=== PATIENT | female | born 1975 | race Hispanic/Latino ===

== ENCOUNTER 2022-04-08 16:09 | Emergency (ER) | payer SELFPAY ==
[2022-04-08] MEDS ORDERED: NALOXONE 2 MG/2 ML INJ ONE (16:31)
[2022-04-08] MEDS ORDERED: NALOXONE 2 MG/2 ML INJ IV ONE (16:45)
[2022-04-08] MEDS ORDERED: SODIUM CHLORIDE 0.9% 1000 ML 1,000 ML IV ONE (16:48)
[2022-04-08 17:48] LABS: Alanine Aminotransferase 22 units/L (7-56); Albumin 3.9 g/dL (3.9-5); Blood Urea Nitrogen 15 mg/dL (7-17); Calcium 8.4 mg/dL (8.4-10.2); Hemolysis Index 6
[2022-04-08 17:55] LABS: Benzodiazepines Screen,Urine Negative; Cannabinoid Screen,Urine Negative; Cocaine Screen,Urine Negative; Methadone Screen,Urine Negative; Opiate Screen,Urine Negative
[2022-04-08 17:57] LABS: Basophils % (Auto) 0.9 % (0.0-1.8); Eosinophils # (Auto) 0.1 K/mm3 (0.0-0.4); Eosinophils % (Auto) 1.9 % (0.0-4.3); Hematocrit 37.5 % (30.3-42.9); Hemoglobin 12.4 gm/dl (10.1-14.3); Lymphocytes # (Auto) 0.7 K/mm3 (1.2-5.4); Lymphocytes % (Auto) 13.5 % (13.4-35.0); Mean Corpuscular HGB Conc 33 % (30-34); Mean Corpuscular Volume 92 fl (79-97); Monocytes # (Auto) 0.4 K/mm3 (0.0-0.8); Monocytes % (Auto) 6.4 % (0.0-7.3); Platelet Count 221 K/mm3 (140-440); Red Blood Count 4.09 M/mm3 (3.65-5.03)
[2022-04-08 18:58] LABS: Calcium Oxalate Crystals,Urine 1+; Mucus,Urine 3+ /HPF
[2022-04-08 18:59] LABS: Amphetamine Screen,Urine Positive
[2022-04-08 19:03] LABS: Bilirubin,Urine Negative (Negative); Blood,Urine Negative (Negative); Color,Urine Yellow (Yellow)
[2022-04-08 19:04] LABS: WBC,Urine > 182.0 /HPF (0.0-6.0)
[2022-04-08 19:34] LABS: BUN/Creatinine Ratio 21
--- NOTE | 2022-04-08 20:21 | Emergency Department Report ---
History of Present Illness - General Chief Complaint: Overdose Stated Complaint: OVERDOSE Time Seen by Provider: 04/08/22 18:03 Source: patient Mode of arrival: Ambulatory Limitations: No Limitations - History of Present Illness Initial Comments: 46 yo F brought in by EMS [email or web address] with syncope episode [place]. Pt has history of seizure and currently not taken any medication for it. She was travelling to [place] for a mini vacation with her mother. She says she has been stressed out and needed some time off. She however says her seizure is usually on when she is stressed out. She says she has to slept at the airport seat last night because [place] rescheduled her until tonight when she suppose to fly out yesterday. She denies any other modifying or associated factors. - Related Data Allergies Allergy/AdvReac Type Severity Reaction Status Date / Time No Known Allergies Allergy Verified 04/08/22 16:45 ED Review of Systems ROS: Stated complaint: OVERDOSE Other details as noted in HPI Comment: All other systems reviewed and negative Neurological: other (seizure ) ED Past Medical Hx - Past Medical History Additional medical history: ADHD - Surgical History Additional Surgical History: MALIGNANT TUMOR REMOVED - Social History Smoking Status: Current Every Day Smoker ED Physical Exam - General Limitations: No Limitations General appearance: alert, in no apparent distress - Head Head exam: Present: normal inspection - Eye Eye exam: Present: normal appearance Pupils: Present: normal accommodation - ENT ENT exam: Present: normal exam, normal orophraynx, mucous membranes moist - Neck Neck exam: Present: normal inspection, full ROM. Absent: tenderness - Respiratory Respiratory exam: Present: normal lung sounds bilaterally. Absent: respiratory distress, accessory muscle use - Cardiovascular Cardiovascular Exam: Present: regular rate, normal rhythm, normal heart sounds - GI/Abdominal GI/Abdominal exam: Present: soft, normal bowel sounds. Absent: distended, tenderness - Extremities Exam Extremities exam: Present: normal inspection, full ROM, normal capillary refill. Absent: tenderness, pedal edema - Back Exam Back exam: Present: normal inspection. Absent: tenderness - Neurological Exam Neurological exam: Present: alert, oriented X3 - Psychiatric Psychiatric exam: Present: normal affect, normal mood - Skin Skin exam: Present: warm, normal color ED Course Vital Signs 04/08/22 04/08/22 04/08/22 16:41 17:54 19:31 Temperature 98.9 F Pulse Rate 61 73 Respiratory 11 L 15 Rate Blood Pressure 104/74 Blood Pressure 103/72 [Right] O2 Sat by Pulse 97 97 95 Oximetry 04/08/22 19:32 Temperature Pulse Rate Respiratory Rate Blood Pressure Blood Pressure [Right] O2 Sat by Pulse 95 Oximetry ED Medical Decision Making - Lab Data Result diagrams: 04/08/22 16:54 04/08/22 16:54 - EKG Data -: EKG Interpreted by [facility] EKG shows normal: sinus rhythm - EKG Data 04/08/22 20:25 Noted with normal sinus rhythm at a rate of 70 bpm, right atrial enlargement with no ST elevation or depression in this abnormal ECG. - Medical Decision Making Here with possible seizure -but other differential such as stroke, vasovagal syncope, myocardial infarction, hepatic encephalopathy, systemic infection with sepsis cannot be ruled out. In order to rule out those above we will go ahead and order CT scan of the brain, CBC, CMP, urinalysis, for any infectious process or electrolyte abnormality and thyroid panel for any hypo or hyper thyroidism. Lab reviewed including UDS and noted to be unremarkable -- pt reassured and d/c home to close follow up -- Critical care attestation.: If time is entered above; I have spent that time in minutes in the direct care of this critically ill patient, excluding procedure time. ED Disposition Clinical Impression: Seizure, Vasovagal near syncope Disposition: 01 HOME / SELF CARE / HOMELESS Is pt being admited?: No Does the pt Need Aspirin: No Condition: Stable Instructions: Seizure, Adult, [id number], Near-Syncope, [id number] Additional Instructions: Maintain adequate rest to help your overall health Increase your daily fluid to help your hydration Avoid any stressful situation Please call and follow-up with your primary doctor in the next 3 to 5 days for progress Call or return to emergency room if your symptoms worsen Referrals: YURI MATHUR MD [Referring] - 3-5 Days Time of Disposition: 20:26
[2022-04-08 21:19] VITALS: BP 110/75
--- NOTE | 2022-04-10 10:54 | Electrocardiograph Report ---
[facility] Test Date: 2022-04-08 Test Time: 16:28:00 Pat Name: MARICARMEN CAICEDO Department: Room: Gender: F Luggage Maker: SHAQUILLE : 1975 Requested By: ARIANA ISABEL Order Number: [id number] Reading MD: Micah Escobar Measurements Intervals [place] Rate: 70 P: 66 WY: 145 QRS: 5 QRSD: 92 T: 18 QT: 425 QTc: 458 Interpretive Statements Sinus rhythm Right atrial enlargement No previous ECG available for comparison Electronically Signed On 04-10-2022 10:54:40 EDT by Micah Escobar
== END 2022-04-08 21:19 | disposition home or self-care (01) ==
LOC: ED 16:09
DX: R56.9 Unspecified convulsions (principal); R55 Syncope and collapse; F17.200 Nicotine dependence, unspecified, uncomplicated; Z79.899 Other long term (current) drug therapy
CPT/HCPCS: 36415; 80053; 80307; 81001; 85025; 93005; 96361; 96374; 99283; J2310; J7030; 80320; G0480